=== PATIENT | male | born 1975 | race Two or more races ===

== ENCOUNTER 2018-01-07 06:09 | Inpatient (IN) | payer OTHER ==
[~2018-01-07] VITALS: Ht 167.6 cm; Wt 83.9 kg
[2018-01-07] VITALS (12 sets, daily range): BP systolic 97–138; BP diastolic 48–93
[~2018-01-07 06:09] MED LIST: NKM
[2018-01-07] MEDS ORDERED: LR 1000ml 1,000 ML IVLG SCH (06:26)
[2018-01-07] MEDS ORDERED: DiphenhydrAMINE 50mg/ml Inj IVP PRN (06:30)
[2018-01-07] MEDS ORDERED: Hydromorphone 0.5mg/0.5ml inj IVP PRN (06:30)
[2018-01-07] MEDS ORDERED: Metoclopramide 10mg/2ml Inj IVP PRN (06:30)
[2018-01-07] MEDS ORDERED: Labetalol 5mg/ml 20ml vial IV PRN (06:30)
[2018-01-07] MEDS ORDERED: HYDROcodone/Acetamin 7.5/325 tab ORAL PRN ×2 (06:30→07:15)
[2018-01-07] MEDS ORDERED: fentaNYL 100 mcg/2 mL IV PRN (06:30)
[2018-01-07] MEDS ORDERED: Atropine Inj 1mg/10ml Syr IV PRN (06:30)
[2018-01-07] MEDS ORDERED: Ketorolac 30mg Inj IV PRN ×2 (06:30)
[2018-01-07] MEDS ORDERED: oxyCODONE HCL/Acetaminophen 5/325mg ORAL PRN (06:30)
[2018-01-07] MEDS ORDERED: LORazepam Inj 2mg/ml 1ml IV PRN (06:30)
[2018-01-07] MEDS ORDERED: Norco 5mg/325mg tab ORAL PRN ×2 (06:30→07:15)
[2018-01-07] MEDS ORDERED: Midazolam 2mg/2ml Inj IVP PRN (06:30)
--- NOTE | 2018-01-07 06:30 | Anethesia Preoperative Eval ---
Anesthesia Pre-op PMH/ROS General Date of Evaluation: Jan 07, 2018 Time of Evaluation: 07:19 Anesthesiologist: Nini ASA Score: ASA 3 Mallampati Score Class I : Soft palate, uvula, fauces, pillars visible Class II: Soft palate, uvula, fauces visible Class III: Soft palate, base of uvula visible Class IV: Only hard plate visible Mallampati Classification: Class II Surgeon: Yolanda Diagnosis: Back Pain Surgical Procedure: L5-S1 Microdiscectomy Anesthesia History: none Family History: no anesthesia problems Allergies: Coded Allergies: No Known Allergies (Unverified , 01/06/18) Medications: see eMAR Past Medical History Cardiovascular: Reports: HTN Pulmonary: Reports: asthma Neurologic/Psychiatric: Reports: depression/anxiety Other: obesity - BMI 32 PSxH Narrative: L IHR Anesthesia Pre-op Phys. Exam Physician Exam Constitutional: NAD Neurologic: CN 2-12 intact Cardiovascular: RRR Respiratory: CTA Gastrointestinal: S/NT/ND Airway Exam Mallampati Score: Class II MO: limited ROM: full Teeth: intact Anesthesia Pre-op A/P Risk Assessment & Plan Assessment: ASA 3 Plan: GA, BIS, GlideScope Status Change Before Surgery: No Pre-Antibiotics Dru Grams Ancef IV Given Within 1 Hr of Incision: Yes Time Given: 07:36 Serg Terrazas MD Jan 07, 2018 06:30
[2018-01-07] MEDS ORDERED: Lidocaine 1% Plain 30 ml INJ ONE ×2 (06:35→09:13)
[2018-01-07] MEDS ORDERED: Dexamethasone 4mg/ml vial ONE (06:43)
[2018-01-07] MEDS ORDERED: Lidocaine 1% MPF 10mg/ml 5ml ONE (06:43)
[2018-01-07] MEDS ORDERED: Sodium Chloride 10ml vial INJ ONE (06:43)
[2018-01-07] MEDS ORDERED: fentaNYL 100 mcg/2 mL IV ONE ×2 (06:44→08:12)
[2018-01-07] MEDS ORDERED: Zemuron 50mg/5ml Inj IV ONE (06:52)
[2018-01-07] MEDS ORDERED: ceFAZolin sod 2 GM in D5W 110 ML IVPB ONE (07:00)
[2018-01-07] MEDS ORDERED: Sterile Water Irrig 1000ml IRRIG ONE (07:00)
[2018-01-07] MEDS ORDERED: LR 1000ml ONE (07:00)
[2018-01-07] MEDS ORDERED: Propofol 1,000mg/ 100ml btl IV ONE (07:00)
[2018-01-07] MEDS ORDERED: NS Irrig 1000ml ONE (07:00)
[2018-01-07] MEDS ORDERED: Acetaminophen (Non formulary) 100 ML IV ONE (07:00)
[2018-01-07] MEDS ORDERED: EPINEPHrine 1mg/1ml Amp ONE (07:06)
[2018-01-07] MEDS ORDERED: Thrombin 5000 units TOPIC ONE (07:07)
[2018-01-07] MEDS ORDERED: Vancomycin 1gm inj IVPB ONE (07:07)
[2018-01-07] MEDS ORDERED: Bupivacaine 0.5% Inj 30 ml vial INJ ONE (07:07)
[2018-01-07] MEDS ORDERED: Bacitracin 50000 Units Vial ONE (07:08)
--- NOTE | 2018-01-07 07:14 | Pre-Procedure Note/Attestation ---
Pre-Procedure Note/Attestation Complete Prior to Procedure Procedure Narrative: Right L5S1 microdecompression and microdiscectomy Indications for Procedure Pre-Operative Diagnosis: lumbar radiculopathy Attestation I attest that I discussed the nature of the procedure; its benefits; risks and complications; and alternatives (and the risks and benefits of such alternatives ), prior to the procedure, with the patient (or the patient's legal financial foundations representative). I attest that, if there was a reasonable possibility of needing a blood transfusion, the patient (or the patient's legal financial foundations representative) was given the [facility] standardized written summary, pursuant to the [place] Blood Safety Act ([place] Health and Safety Code # 1645, as amended). I attest that I re-evaluated the patient just prior to the surgery and that there has been no change in the patient's H&P, except as documented below: Leonides Guerrero MD Jan 07, 2018 07:14
[2018-01-07] MEDS ORDERED: Naloxone 0.4mg/ml Inj IVP PRN (07:15)
[2018-01-07] MEDS ORDERED: Morphine Sulfate 2mg/ml Inj IV PRN (07:15)
[2018-01-07] MEDS ORDERED: Morphine Sulfate 4mg/ml Inj IV PRN ×2 (07:15)
--- NOTE | 2018-01-07 07:19 | Immediate Post-Op Evaluation ---
Immediate Post-Op Evalulation Immediate Post-Op Evalulation Procedure: L5-S1 Microdiscectomy Date of Evaluation: Jan 07, 2018 Time of Evaluation: 10:14 IV Fluids: 1000 LR Blood Products: 0 Estimated Blood Loss: 25 Urinary Output: 0 Blood Pressure Systolic: 116 Blood Pressure Diastolic: 52 Pulse Rate: 78 Respiratory Rate: 16 O2 Sat by Pulse Oximetry: 96 Temperature (Fahrenheit): 97.2 Pain Score (1-10): 2 Nausea: No Vomiting: No Complications 0 Patient Status: awake, reacts, patent, extubated, none Hydration Status: adequate Dru grams Ancef IV Given Within 1 Hr of Incision: Yes Time Given: 07:36 Serg Terrazas MD Jan 07, 2018 07:19
[2018-01-07] MEDS: Docusate 100mg cap ORAL SCH ×2 (09:00→18:00)
--- NOTE | 2018-01-07 09:41 | Brief Operative Note ---
Immediate Post Operative Note Operative Note Pre-op Diagnosis: lumbar radiculopathy Procedure: right L5s1 microdecompression and microdiscectomy Post-op Diagnosis: same as pre-op Findings: consistent w/pre-op dx studies, other - consistent with preop studies Surgeon: nena Landman: linda Anesthesiologist: michael Anesthesia: general Specimen: yes Complications: none Condition: stable Fluids: 800cc Estimated Blood Loss: minimal - 25cc Drains: none Implant(s) used?: No Leonides Guerrero MD Jan 07, 2018 09:41
--- NOTE | 2018-01-07 10:03 | 48 Hour Post Anesthesia Eval ---
Post Anesthesia Evaluation Procedure: L5-S1 Microdiscectomy Date of Evaluation: Jan 07, 2018 Time of Evaluation: 12:32 Blood Pressure Systolic: 133 0: 78 Pulse Rate: 76 Respiratory Rate: 18 Temperature (Fahrenheit): 98.2 O2 Sat by Pulse Oximetry: 99 Airway: patent Nausea: No Vomiting: No Pain Intensity: 3 Hydration Status: adequate Cardiopulmonary Status: Stable Mental Status/LOC: patient returned to baseline Follow-up Care/Observations: 0 Post-Anesthesia Complications: 0 Follow-up care needed: ready to discharge Serg Terrazas MD Jan 07, 2018 10:03
--- NOTE | 2018-01-07 12:23 | Diagnostic Imaging Report ---
Indication: Back pain Comparison: None Findings: 2 fluoroscopic views of the lumbar spine were obtained. Fluoroscopic time 9.6 seconds. Localization image showing instrumentation posterior to L5-S1. IMPRESSION: Intraoperative imaging
[2018-01-07] MEDS ORDERED: D5 1/2NS 1,000 ML IV SCH (12:45)
--- NOTE | 2018-01-07 13:06 | History and Physical ---
History of Present Illness General Date patient seen: Jan 07, 2018 Present Illness HPI 42 year old male with lumbar radiculopathy admitted for right L5s1 microdecompression and microdiscectomy. post operatively pt is admitted to floor for post op therapy. Allergies: Coded Allergies: No Known Allergies (Unverified , 01/06/18) Medication History Scheduled No Known Medications* (NKM - No Known Medications*), 0 ., (Reported) Patient History Healthcare decision maker RADHA WEATHERSPAR- Resuscitation status Full Code Advanced Directive on File Past Medical/Surgical History Past Medical/Surgical History: (1) Lumbar radiculopathy Review of Systems All Other Systems: negative except mentioned in HPI Physical Exam General Appearance: WD/WN, no apparent distress Lines, tubes and drains: peripheral HEENT: normocephalic, atraumatic Neck: non-tender, normal alignment Respiratory/Chest: chest wall non-tender, lungs clear, normal breath sounds Breasts: no masses Cardiovascular/Chest: normal peripheral pulses, normal rate Abdomen: normal bowel sounds, non tender Genitourinary/Rectal: normal genital exam Extremities: normal range of motion Skin Exam: normal pigmentation 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 Last 24 Hour Vital Signs Date Time Temp Pulse Resp B/P (MAP) Pulse Ox O2 Delivery O2 Flow Rate FiO2 01/07/18 12:39 Nasal Cannula 3.0 01/07/18 11:15 98.0 01/07/18 11:10 98 84 15 123/71 100 Nasal Cannula 3 98.0 01/07/18 11:00 87 15 127/67 100 Nasal Cannula 3 01/07/18 10:45 97.8 01/07/18 10:45 80 15 123/72 100 Nasal Cannula 3 01/07/18 10:30 83 19 132/68 100 Nasal Cannula 3 01/07/18 10:20 85 15 118/66 100 Nasal Cannula 3 01/07/18 10:13 82 16 115/59 98 Simple Mask 10 01/07/18 10:08 80 11 97/48 99 Simple Mask 10 01/07/18 10:03 97.2 78 16 116/52 98 Simple Mask 10 97.2 01/07/18 10:03 208.8 76 18 99 01/07/18 10:02 207.0 78 16 96 01/07/18 06:50 97.6 62 20 138/89 98 Room Air 97.6 Height (Feet): 5 Height (Inches): 6.00 Weight (Pounds): 185 Medications Current Medications Medications (Trade) Dose Ordered Sig/Barry Route PRN Reason Start Time Stop Time Status Last Admin Dose Admin Acetaminophen/ Hydrocodone Bitart ([place] 5/325) 1 tab Q1H PRN ORAL Mild Pain (Pain Scale 1-3) 01/07/18 06:30 01/07/18 15:00 Acetaminophen/ Hydrocodone Bitart ([place] 5/325) 1 tab Q3H PRN ORAL pain score 1-3 01/07/18 07:15 01/14/18 07:14 UNV Acetaminophen/ Hydrocodone Bitart ([place] 7.5/325) 1 tab Q1H PRN ORAL Moderate Pain (Pain Scale 4-6) 01/07/18 06:30 01/07/18 15:00 Acetaminophen/ Hydrocodone Bitart ([place] 7.5/325) 1 tab Q3H PRN ORAL pain score 4-6 01/07/18 07:15 01/14/18 07:14 UNV Acetaminophen/ Hydrocodone Bitart ([place] 7.5/325) 2 tab Q3H PRN ORAL pain scale 7-10 01/07/18 07:15 01/14/18 07:14 UNV Al Hydroxide/Mg Hydroxide (Mylanta) 15 ml Q1H PRN ORAL gi upset 01/07/18 06:30 01/07/18 15:00 Atropine Sulfate (Atropine) 0.5 mg Q5M PRN IV HR <40 01/07/18 06:30 01/07/18 15:00 Cefazolin Sodium 1 gm/Dextrose 55 ml @ 110 mls/hr Q8H IV 01/07/18 15:30 01/08/18 07:59 Dextrose/Sodium Chloride 1,000 ml @ 100 mls/hr Q10H IV 01/07/18 12:45 02/06/18 12:44 Diphenhydramine HCl (Benadryl) 25 mg Q15M PRN IVP Itching 01/07/18 06:30 01/07/18 15:00 Docusate Sodium (Colace) 100 mg TWICE A DAY ORAL 01/07/18 09:00 02/06/18 08:59 UNV Fentanyl Citrate (Sublimaze 100 mcg/2 mL) 25 mcg Q10M PRN IV Moderate Pain (Pain Scale 4-6) 01/07/18 06:30 01/07/18 15:00 Hydromorphone HCl (Dilaudid) 0.5 mg Q15M PRN IVP Severe Pain (Pain Scale 7-10) 01/07/18 06:30 01/07/18 15:00 01/07/18 10:45 Ketorolac Tromethamine (Toradol 30mg) 15 mg Q1H PRN IV Moderate Breakthru Pain (5-7) 01/07/18 06:30 01/07/18 15:00 Ketorolac Tromethamine (Toradol 30mg) 30 mg Q1H PRN IV Severe Breakthru Pain (>7) 01/07/18 06:30 01/07/18 15:00 Labetalol HCl (Normodyne) 5 mg Q10M PRN IV SBP>160 / DBP>90 01/07/18 06:30 01/07/18 15:00 Lactated Ringer's 1,000 ml @ 10 mls/hr Q24H IVLG 01/07/18 06:26 01/07/18 15:00 Lorazepam (Ativan 2mg/ml 1ml) 1 mg Q15M PRN IV For Anxiety 01/07/18 06:30 01/07/18 15:00 Metoclopramide HCl (Reglan) 10 mg Q1H PRN IVP Nausea & Vomiting 01/07/18 06:30 01/07/18 15:00 Midazolam HCl (Versed 2mg/2ml vial) 1 mg Q15M PRN IVP For Anxiety 01/07/18 06:30 01/07/18 15:00 Morphine Sulfate (Morphine Sulfate) 2 mg Q4H PRN IV Mild Pain (Pain Scale 1-3) 01/07/18 07:15 01/14/18 07:14 UNV Morphine Sulfate (Morphine Sulfate) 4 mg Q3H PRN IV Severe Pain (Pain Scale 7-10) 01/07/18 07:15 01/14/18 07:14 UNV Morphine Sulfate (Morphine Sulfate) 4 mg Q4H PRN IV Moderate Pain (Pain Scale 4-6) 01/07/18 07:15 01/14/18 07:14 UNV Naloxone HCl (Narcan) 0.1 mg PRN PRN IVP RR<12/min, pt unarousable 01/07/18 07:15 02/06/18 07:14 UNV Ondansetron HCl (Zofran) 4 mg Q1H PRN IVP Nausea & Vomiting 01/07/18 06:30 01/07/18 15:00 Oxycodone/ Acetaminophen (Percocet 5-325) 1 tab Q1H PRN ORAL Severe Pain (Pain Scale 7-10) 01/07/18 06:30 01/07/18 15:00 Assessment/Plan Problem List: (1) Lumbar radiculopathy ICD Codes: M54.16 - Radiculopathy, lumbar region SNOMED: [id number] (2) right L5s1 microdecompression Assessment/Plan post op care analgesics antiemetics dvt prophylaxis IV and/ po narcotics Yany Cunningham MD Jan 07, 2018 13:06
[2018-01-07] MEDS: ceFAZolin sod 1 GM in D5W 55 ML IV SCH (14:59)
[2018-01-07] MEDS: HYDROcodone/Acetamin 7.5/325 tab ORAL PRN (16:45)
--- NOTE | 2018-01-07 19:15 | Operative Note - Dictated ---
DATE OF OPERATION: 01/07/2018 PREOPERATIVE DIAGNOSIS: L5-S1 disk bulge with neural foraminal stenosis and verifiable right lower extremity L5 radiculopathy. POSTOPERATIVE DIAGNOSIS: L5-S1 disk protrusion with neural foraminal stenosis and verifiable right lower extremity L5 radiculopathy. PROCEDURE PERFORMED: 1. Right-sided L5-S1 interlumbar laminotomy, medial facetectomy, foraminotomy, and microdiskectomy. 2. Intraoperative use of microscope. 3. Intraoperative use of fluoroscopy for localization. SURGEON: Leonides Guerrero M.D. ASPHALT SMOOTHER: Zachariah Ingram M.D. ANESTHESIA: General endotracheal anesthesia. ANESTHESIOLOGIST: Serg Terrazas M.D. INTRAOPERATIVE FINDINGS: L5-S1 disk protrusion with stenosis, impingement of the neural elements and right-sided L5-S1 neural foraminal stenosis and impingement of the exiting right L5 nerve root. ESTIMATED BLOOD LOSS: 25 mL. FLUIDS: 800 mL of crystalloid. INDICATIONS: This is a pleasant male, who failed nonoperative treatment, continued to have low back pain with right lower extremity numbness, tingling, and pain, who has failed nonoperative treatment including interventional pain management and option for above treatment was given. Risks, alternatives, and benefits were discussed with the patient at length. Risks include, but are not limited to, anesthesia complications including , medical complications including liver, kidney, and cardiopulmonary deficits, bleeding, infection, dural tear, CSF leak, nerve root injury, pars fracture, instability, reherniation, and continued symptoms. DESCRIPTION OF OPERATION: The patient was brought into the operating room supine on a stretcher. Subsequently, appropriate IV lines were placed and 2 g of Ancef was administered. Anesthesia was induced and the patient was successfully intubated. Sequential compression devices were placed onto the bilateral lower extremities. The patient was gently turned over onto the Mert frame table. All bony prominences were well padded. The abdomen was assured to lay freely. The L5-S1 interspace was positively identified preoperatively with fluoroscopy and an indelible marker was used to anya the midline. At this point, me and my server service assistant were prepped and gowned, and the patient was prepped and draped in the usual sterile fashion. The patient was prepped and draped with alcohol, chlorhexidine scrub, ChloraPrep, and Ioban draping. An incision was made over the midline over L5-S1. Superficial hemostasis was achieved. The L5 and S1 laminas were located and monopolar cautery was used to incise the dorsal lumbar fascia and approached the lamina on the right side. The paravertebral muscles were swept off of lamina. At this point, retractors were set into place. A radiopaque marker was placed at the inferior pedicle level and the S1 pedicle was positively identified. At this point, attention was diverted to decompression with a high-speed drill, straight and curved curettes, #2 through #5 Kerrison punches and interlumbar laminotomy, medial facetectomy, lateral recess decompression, as well as a foraminotomy was completed. There was [id number] foraminal stenosis at the exiting right L5 nerve root and with the use of #1 and #2 Kerrison punches as well as the curved curette, the superior aspect of the facet was removed and a complete decompression of the exiting L5 nerve root entailed with the foramina patent at the end of the decompression. At this point, a microdissection of the neural element was done with the use of intraoperative microscope and the neural elements were carefully medially retracted with a nerve root retractor and investigation of the floor of the canal was done. There is a disk protrusion at L5-S1, which was impinging on the neural elements and the traversing S1 nerve root and with a #11 scalpel, a cruciate incision was made into the disc and with the use of Carin curette, nerve hook Donnelly instrument, different shape and types of pituitary rongeurs, the microdiskectomy entailed until the floor of the canal was flat and until there was no further impingement of the neural elements. Once this was accomplished, a further check was taken. All loose debris was removed. A Valsalva at 40 mmHg was done. There was no CSF leak. The central canal, lateral recess, as well as the neural foramina were found to be completely patent and attention was now diverted to closure. The wound was copiously irrigated with triple antibiotic solution. The dorsal lumbar fascia was closed with #1 Vicryl sutures in a watertight interrupted fashion. A 1 g of vancomycin powder was placed supra and infra fashion. Hemostasis was achieved. The subdermal and subcuticular layers were closed with 2-0 Vicryl sutures. All sponge, needle, and instrument counts were correct. There were no complications during the case. Dermabond, sterile dressing, and tape were placed. All sponge, needle, and instrument counts were correct. The patient was turned supine, was extubated in stable condition, was taken to the recovery room in stable condition and found to be neurovascularly intact. The patient was admitted to the hospital for monitoring. Leonides Guerrero M.D. DR: MOI JOB#: [id number] CC:
[2018-01-08] VITALS: BP 127/69
[2018-01-08] MEDS: ceFAZolin sod 1 GM in D5W 55 ML IV SCH ×2 (00:02→07:49)
[2018-01-08] MEDS: HYDROcodone/Acetamin 7.5/325 tab ORAL PRN ×2 (00:02→10:39)
[2018-01-08 04:00] VITALS: BP 103/71
[2018-01-08 08:26] VITALS: BP 120/73
[2018-01-08] MEDS: Docusate 100mg cap ORAL SCH (09:13)
[2018-01-08] MEDS ORDERED: NORCO 5-325 TA1 EACH ORAL (12:36)
[2018-01-08] MEDS ORDERED: NAPROXEN250 MG ORAL (12:36)
--- NOTE | 2018-01-08 19:21 | Pulmonology Progress Note ---
Assessment/Plan Problems: (1) Lumbar radiculopathy (2) right L5s1 microdecompression Assessment/Plan improving dc planning pain management Subjective ROS Limited/Unobtainable: No Allergies: Coded Allergies: No Known Allergies (Unverified , 01/06/18) Objective Last 24 Hour Vital Signs Date Time Temp Pulse Resp B/P (MAP) Pulse Ox O2 Delivery O2 Flow Rate FiO2 01/08/18 09:14 Room Air 01/08/18 08:26 98.0 71 18 120/73 (89) 96 98.0 01/08/18 04:00 98.3 83 19 103/71 (82) 98 98.3 01/08/18 00:00 98.2 72 18 127/69 (88) 98 98.2 01/07/18 21:00 Room Air 01/07/18 20:10 97.5 92 18 127/71 (89) 97 97.5 Intake and Output 01/07/18 01/08/18 19:00 07:00 Intake Total 2120 ml Output Total 770 ml Balance 1350 ml Intake Oral 1020 ml IV Total 1100 ml Output Urine Total 750 ml Estimated Blood Loss 20 ml Objective General Appearance: WD/WN HEENT: normocephalic, atraumatic Respiratory/Chest: chest wall non-tender, lungs clear Breasts: no masses Cardiovascular: normal peripheral pulses, normal rate Abdomen: normal bowel sounds, no organomegaly 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 Complete Yany Cunningham MD Jan 08, 2018 19:21
--- NOTE | 2018-01-11 13:44 | Discharge Summary ---
Discharge Summary Hospital Course Date of Admission Jan 07, 2018 at 06:09 Date of Discharge Jan 08, 2018 at 13:23 Admitting Diagnosis lumbar radiculopathy Reason for Hospitalization: Elective surgery HPI Juan Jose King is a 42 year old male who was admitted on Jan 07, 2018 at 06:09 for Lumbar Radiculopathy. Patient was admitted for elective surgery. Consultations dr Cunningham-IM Procedures s/p 01/07/[address] Guerrero 1. Right-sided L5-S1 interlumbar laminotomy, medial facetectomy, foraminotomy, and microdiskectomy. 2. Intraoperative use of microscope. 3. Intraoperative use of fluoroscopy for localization. Hospital Course s/p surgery course of recovery uneventful neurovascular intact incision clean dry and intact pain management addressed ; pain controlled initially IV fluids patient ambulated with PT,fall precautions maintained patient was able to ambulate freely voided freely diet as tolerated, antiemetics as needed able to tolerate diet bowel regimen instituted discharge instruction provided stable for discharge home outpatient follow-up with surgeon in 7-10 days FINAL DIAGNOSIS 1.L5-S1 disk protrusion with neural foraminal stenosis and verifiable right lower extremity L5 radiculopathy 2. s/p L5-S1 Microdiscectomy Discharge Medications Changed Medications: Naproxen* (Naprosyn*) 250 Mg Tablet 500 MG ORAL TWICE A DAY, #60 TAB 0 Refills (Changed from: 250 MG) Continued Medications: Hydrocodone Bit/Acetaminophen 5-325* ([place] 5-325*) 1 Each Tablet 1 TAB ORAL Q4H PRN for For Pain, TAB 0 Refills (This prescription has been renewed) Discharge Condition Upon Discharge: stable Discharge Disposition Patient was discharged to Home () Discharge Instructions Discharge Instructions Special Instructions I have been assigned to complete a D/C Summary on this account. I was not involved in the patient management Maria Alejandra Arthur NP Jan 11, 2018 13:44
== END 2018-01-08 13:23 | disposition home or self-care (01) | DRG 520 ==
LOC: SDSOVERFLO 06:09 → 3E 11:33
PROC: 01NB0ZZ Release Lumbar Nerve, Open Approach (ICD-10-PCS; principal; 2018-01-07 07:30)
PROC: 0SB20ZZ Excision of Lumbar Vertebral Disc, Open Approach (ICD-10-PCS; principal; 2018-01-07 07:30)
DX: M51.16 Intervertebral disc disorders with radiculopathy, lumbar region (principal); M48.061 Spinal stenosis, lumbar region without neurogenic claudication; I10 Essential (primary) hypertension; J45.909 Unspecified asthma, uncomplicated
CPT/HCPCS: 72020; 76000; 87081; 94003; 94150; J2405